=== PATIENT | female | born 1970 | race Caucasian/White ===

== ENCOUNTER 2019-07-18 08:52 | Observation (INO) | payer BC ==
[2019-07-18] MEDS ORDERED: Sodium Chloride 0.9% 10 ML Syringe FLUSH PRN (09:11)
[2019-07-18] MEDS ORDERED: Sodium Chloride 0.9% 1,000 ML IV ONE (09:12)
--- NOTE | 2019-07-18 09:24 | EDM.PDOC ---
<Homa Azar - Last Filed: 07/18/19 10:03> ED HPI GENERAL MEDICAL PROBLEM - General Chief Complaint: Fever Stated Complaint: COUGH,DIARRHEA,FEVER Time Seen by Provider: 07/18/19 09:19 Source of Information: Reports: Patient History Limitations: Reports: No Limitations - History of Present Illness INITIAL COMMENTS - FREE TEXT/NARRATIVE: Patient presents to the ED direct from clinic with concerns of cough, fever, and diarrhea. The patient states that her symptoms began on Tuesday. She experienced a recorded temp of 101 on Tuesday. The patient describes non- productive cough. She also has experienced occasional emesis and a sore throat. The patient also reports tingling in her extremities. The patient admits decreased appetite and decreased fluid intake. She has no known ill contacts. The patient denies abdominal pain, painful urination, hematuria, flank pain. 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 - Related Data Allergies Allergy/AdvReac Type Severity Reaction Status Date / Time acetaminophen [From Percocet] Allergy Itching Verified 07/18/19 09:10 lidocaine Allergy Burning Verified 07/18/19 09:10 oxycodone HCl [From Percocet] Allergy Itching Verified 07/18/19 09:10 tramadol Allergy Rash Verified 07/18/19 09:10 zolpidem Allergy Disorientat Verified 07/18/19 09:10 ion Home Meds: Home Meds Levothyroxine 25 mg PO DAILY 12/20/18 [History] Levothyroxine 150 mg PO DAILY 12/20/18 [History] Past Medical History HEENT History: Reports: Impaired Vision Other HEENT History: glasses Cardiovascular History: Reports: High Cholesterol Respiratory History: Reports: None Gastrointestinal History: Reports: Diverticulosis Genitourinary History: Reports: None 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: Musculoskeletal History: Reports: Arthritis, Back Pain, Chronic Neurological History: Reports: None Psychiatric History: Reports: Depression Endocrine/Metabolic History: Reports: Hypothyroidism Other Endocrine/Metabolic History: Hx of gestasional Dm Hematologic History: Reports: None Immunologic History: Reports: None Oncologic (Cancer) History: Reports: Thyroid Other Oncologic History: thyroidectomy Dermatologic History: Reports: None - Infectious Disease History Infectious Disease History: Reports: Chicken Pox - Past Surgical History Head Surgeries/Procedures: Reports: None HEENT Surgical History: Reports: None Cardiovascular Surgical History: Reports: None Respiratory Surgical History: Reports: None GI Surgical History: Reports: Appendectomy, Cholecystectomy, Colonoscopy Female Surgical History: Reports: Breast Biopsy, Hysterectomy, Salpingo- Oophorectomy Endocrine Surgical History: Reports: Thyroidectomy Neurological Surgical History: Reports: None, Lumbar Spine Musculoskeletal Surgical History: Reports: Arthroscopic Knee, Other (See Below) Other Musculoskeletal Surgeries/Procedures:: FOOT SURGERY X2. Back surgery for herniated disc. Knee surgery for torn meniscus Oncologic Surgical History: Reports: Other (See Below) Other Oncologic Surgeries/Procedures: Thyroid biopsy Social & Family History - Family History Family Medical History: Noncontributory - Caffeine Use Caffeine Use: Reports: None ED ROS GENERAL - Review of Systems Review Of Systems: See Below Constitutional: Reports: Fever, Decreased Appetite Respiratory: Reports: Wheezing, Cough GI/Abdominal: Reports: Diarrhea, Nausea, Vomiting. Denies: Abdominal Pain, Bloody Stool, Constipation, Hematemesis : Denies: Dysuria, Flank Pain, Hematuria, Pain Neurological: Reports: Numbness (extremities), Tingling (extremities) ED EXAM, GENERAL - Physical Exam Exam: See Below Exam Limited By: No Limitations General Appearance: Alert, Mild Distress Ears: Normal External Exam, Normal Canal, Normal TMs Nose: Normal Inspection, Normal Mucosa Throat/Mouth: Normal Inspection, Normal Oropharynx Head: Atraumatic, Normocephalic Respiratory/Chest: No Respiratory Distress, Lungs Clear, Normal Breath Sounds Cardiovascular: Normal Peripheral Pulses, Regular Rate, Rhythm, No Murmur GI/Abdominal: Soft, Non-Tender Back Exam: No: CVA Tenderness (L), CVA Tenderness (R) Neurological: Other (Positive trousseau's, chvosteks) Psychiatric: Anxious Skin Exam: Warm, Dry, Intact Lymphatic: No Adenopathy EKG INTERPRETATION EKG Date: 07/18/19 Time: 09:40 Rhythm: NSR Rate (Beats/Min): 69 [place]: Normal P-Wave: Present QRS: Normal ST-T: Normal QT: Normal Comparison: NA - No Prior EKG Course - Vital Signs Last Recorded V/S: Last Vital Signs Temp 99.1 F 07/18/19 09:03 Pulse 81 07/18/19 09:03 Resp 18 07/18/19 09:03 BP 136/99 H 07/18/19 09:03 Pulse Ox 99 07/18/19 09:03 - Orders/Labs/Meds Orders: Active Orders 24 hr Category Date Time Status EKG 12 Lead [EKG Documentation Completion] [RC] STAT Care 07/18/19 09:32 Active Peripheral IV Care [RC] . DIRECTED Care 07/18/19 09:11 Active Chest 2V [CR] Urgent Exams 07/18/19 09:22 Taken CULTURE BLOOD [BC] Stat Lab 07/18/19 09:13 Received Sodium Chloride 0.9% [Normal Saline] 1,000 ml Med 07/18/19 09:12 Active IV .BOLUS Sodium Chloride 0.9% [Saline Flush] Med 07/18/19 09:11 Active 10 ml FLUSH ASDIRECTED PRN Isolation [COMM] Routine Oth 07/18/19 09:09 Active Peripheral IV Insertion Adult [OM.PC] Routine Oth 07/18/19 09:11 Ordered Medication Orders Sodium Chloride (Normal Saline) 1,000 mls @ 999 mls/hr IV .BOLUS ONE Stop: 07/18/19 10:12 Last Admin: 07/18/19 09:28 Dose: 999 mls/hr Sodium Chloride (Saline Flush) 10 ml FLUSH ASDIRECTED PRN PRN Reason: Keep Vein Open Labs: Laboratory Tests 07/18/19 07/18/19 07/18/19 Range/Units 09:13 09:13 09:13 WBC 10.7 H (5.0-10.0) 10^3/uL RBC 4.52 (4.2-5.4) 10^6/uL Hgb 15.3 (12.0-16.0) g/dL Hct 43.7 (37.0-47.0) % MCV 96.7 (80-100) fL MCH 33.8 (27.0-34.0) pg MCHC 35.0 (33.0-35.0) g/dL Plt Count 196 (150-450) 10^3/uL Neut % (Auto) 88.5 H (42.2-75.2) % Lymph % (Auto) 5.0 L (20.5-50.1) % [place] % (Auto) 6.0 (2-8) % Eos % (Auto) 0.3 L (1.0-3.0) % Baso % (Auto) 0.2 (0.0-1.0) % Sodium 139 (136-145) mmol/L Potassium 3.9 (3.5-5.1) mmol/L Chloride 98 L (101-111) mmol/L Carbon Dioxide 29 (21-32) mmol/L Anion Gap 15.9 H (7-13) mEq/L BUN 5 L (7-18) mg/dL Creatinine 0.88 (0.55-1.02) mg/dL Est Cr Clr Drug Dosing 77.15 mL/min Estimated GFR (MDRD) > 60 BUN/Creatinine Ratio 5.7 (No establ ref range) Glucose 101 H (74-99) mg/dL Lactic Acid 1.1 (0.4-2.0) mmol/L Calcium 7.2 L (8.5-10.1) mg/dL Magnesium (1.8-2.5) mg/dL Total Bilirubin 0.6 (0.2-1.0) mg/dL AST 110 H (15-37) U/L ALT 51 (14-59) U/L Alkaline Phosphatase 128 H (46-116) U/L Total Protein 8.2 (6.4-8.2) g/dL Albumin 4.3 (3.4-5.0) g/dL Globulin 3.9 Albumin/Globulin Ratio 1.1 //20 Range/Units 09:13 WBC (5.0-10.0) 10^3/uL RBC (4.2-5.4) 10^6/uL Hgb (12.0-16.0) g/dL Hct (37.0-47.0) % MCV (80-100) fL MCH (27.0-34.0) pg MCHC (33.0-35.0) g/dL Plt Count (150-450) 10^3/uL Neut % (Auto) (42.2-75.2) % Lymph % (Auto) (20.5-50.1) % [place]borne % (Auto) (2-8) % Eos % (Auto) (1.0-3.0) % Baso % (Auto) (0.0-1.0) % Sodium (136-145) mmol/L Potassium (3.5-5.1) mmol/L Chloride (101-111) mmol/L Carbon Dioxide (21-32) mmol/L Anion Gap (7-13) mEq/L BUN (7-18) mg/dL Creatinine (0.55-1.02) mg/dL Est Cr Clr Drug Dosing mL/min Estimated GFR (MDRD) BUN/Creatinine Ratio (No establ ref range) Glucose (74-99) mg/dL Lactic Acid (0.4-2.0) mmol/L Calcium (8.5-10.1) mg/dL Magnesium 1.9 (1.8-2.5) mg/dL Total Bilirubin (0.2-1.0) mg/dL AST (15-37) U/L ALT (14-59) U/L Alkaline Phosphatase (46-116) U/L Total Protein (6.4-8.2) g/dL Albumin (3.4-5.0) g/dL Globulin Albumin/Globulin Ratio Meds: Medications Generic Name Dose Route Start Last Admin Trade Name Freq PRN Reason Stop Dose Admin Sodium Chloride 1,000 mls @ 999 mls/hr 07/18/19 09:12 07/18/19 09:28 Normal Saline IV 07/18/19 10:12 999 mls/hr .BOLUS ONE Administration Sodium Chloride 10 ml 07/18/19 09:11 Saline Flush FLUSH ASDIRECTED PRN Keep Vein Open Discontinued Medications Generic Name Dose Route Start Last Admin Trade Name Freq PRN Reason Stop Dose Admin Calcium Chloride 1 gm 07/18/19 09:49 Calcium Chloride 10% IVPUSH 07/18/19 09:50 ONETIME ONE - Radiology Interpretation Free Text/Narrative:: Chest xr unremarkable Departure - Departure Time of Disposition: 10:03 (admitted to Dr. Vallejo) Disposition: Refer to Observation Condition: Fair Clinical Impression: Influenza A, Hypocalcemia - Discharge Information *PRESCRIPTION DRUG MONITORING PROGRAM REVIEWED*: Not Applicable *COPY OF PRESCRIPTION DRUG MONITORING REPORT IN PATIENT NEDA: Not Applicable Forms: ED Department Discharge Sepsis Event Note - Evaluation Sepsis Screening Result: No Definite Risk - Focused Exam Vital Signs: Vital Signs Temp Pulse Resp BP Pulse Ox 07/18/19 09:03 99.1 F 81 18 136/99 H 99 Date Exam was Performed: 07/18/19 Time Exam was Performed: 10:03 - My Orders Last 24 Hours: My Active Orders 07/18/19 09:12 Sodium Chloride 0.9% [Normal Saline] 1,000 ml IV .BOLUS - Assessment/Plan Last 24 Hours: My Active Orders 07/18/19 09:12 Sodium Chloride 0.9% [Normal Saline] 1,000 ml IV .BOLUS <Samy Lopes - Last Filed: 07/18/19 10:04> Course - Re-Assessments/Exams Free Text/Narrative Re-Assessment/Exam: 07/18/19 10:04 I personally performed or re-performed the physical examination and medical decision making. I have verified all student documentation or findings, including history, physical exam and/or medical decision making. Sepsis Event Note - Focused Exam Date Exam was Performed: 07/18/19 Time Exam was Performed: 10:04
[2019-07-18 09:43] LABS: ANION GAP 15.9 mEq/L (7-13); CHLORIDE,CL 98 mmol/L (101-111); SODIUM,NA 139 mmol/L (136-145)
[2019-07-18] MEDS ORDERED: Calcium Chloride 10% 1 GM/10 ML Syringe IVPUSH ONE (09:49)
[2019-07-18] MEDS ORDERED: Acetaminophen/HYDROcodone 325-10 MG Tab PO PRN (10:39)
[2019-07-18] MEDS ORDERED: Ondansetron 4 MG Tab.DIS PO PRN (10:39)
[2019-07-18] MEDS ORDERED: Ondansetron 4 MG/2 ML SDV IVPUSH PRN (10:39)
[2019-07-18] MEDS: Codeine/Promethazine 10-6.25 MG/5 ML Syrup 5 ML UD Cup PO PRN ×3 (12:13→20:41)
[2019-07-18] MEDS: Sodium Chloride 0.9% 1,000 ML IV SCH ×2 (12:13→20:59)
[2019-07-18] MEDS: Acetaminophen 325 MG Tab PO PRN ×3 (12:13→20:39)
[2019-07-18] MEDS: Oseltamivir 75 MG Cap PO SCH ×2 (12:13→20:39)
[2019-07-18] MEDS: Calcium Carbonate/Vitamin D3 1250 MG-200 Unit Tab PO SCH ×3 (13:02→20:51)
--- NOTE | 2019-07-18 16:29 | HP ---
CHIEF COMPLAINT: Fever, cough, and diarrhea. HISTORY OF PRESENT ILLNESS: The patient is a 49-year-old lady who was admitted from the emergency room because the patient has been having some problems with nonproductive cough, fever, and diarrhea for the last 3 days. She had a temperature of 101 on Tuesday and also had some episodes of emesis and sore throat. Lately, she has been complaining of tingling in her extremities and also had decreased appetite and decreased fluid intake. The patient was seen in the emergency room and had some workup done and her calcium level was noted to be low and also she tested positive for influenza A. The patient was given calcium chloride 1 g IV in the emergency room and she was admitted for further observation. The patient denies though any abdominal pain, dysuria, chest pain, orthopnea, PND. PAST MEDICAL HISTORY: Remarkable for thyroidectomy and hypothyroidism, history of symptomatic hypocalcemia in the past, diverticulosis, arthritis of her back. PAST SURGICAL HISTORY: Appendectomy, cholecystectomy, hysterectomy, and salpingo-oophorectomy. FAMILY HISTORY: Noncontributory. SOCIAL HISTORY: The patient is . Drinks alcohol occasionally, but no illicit drug use. REVIEW OF SYSTEMS: As in HPI. The rest of the review of systems is negative. HOME MEDICATION: Synthroid. PHYSICAL EXAMINATION: General: The patient is alert and oriented, not in any acute distress. HEENT: Normocephalic. There is pink palpebral conjunctiva. Sclerae anicteric. Neck: No JVD. No lymphadenopathy. Heart: Regular rate and rhythm. Normal S1 and S2. No gallops. No rubs. Lungs: Clear. No crackles. No wheezing. Abdomen: Soft, nontender. Bowel sounds positive. Extremities: Negative for any significant pedal edema. No calf tenderness. Neurologic: Positive for Trousseau and Chvostek signs. LABORATORY WORKUP: CBC: WBC 10.7, hemoglobin is 15.3, hematocrit is 43.7, platelets 196. Sodium is 139, potassium is 3.9, chloride of 98, carbon dioxide 29, BUN is 5, creatinine is 0.88, glucose is 101, calcium is 7.2, AST is 110, ALT is 51, total protein is 8.2, magnesium is 1.9. Chest x-ray unremarkable. ADMITTING DIAGNOSES: 1. Fever, chills, cough, and diarrhea. Positive for influenza A. 2. Symptomatic hypocalcemia. TREATMENT PLAN: The patient is going to be admitted to observation in General Medicine floor. She was given IV calcium chloride in the emergency room and we will continue with oral calcium in the hospital. We will also start the patient on Tamiflu for the influenza A and we will continue with IV fluids and the rest of the management as necessary. [facility] /[id number]
[2019-07-19] MEDS: Codeine/Promethazine 10-6.25 MG/5 ML Syrup 5 ML UD Cup PO PRN ×5 (00:55→23:47)
[2019-07-19] MEDS: Sodium Chloride 0.9% 1,000 ML IV SCH (05:07)
[2019-07-19] MEDS ORDERED: Levothyroxine 150 MCG Tab PO SCH ×2 (06:00→09:00)
[2019-07-19] MEDS ORDERED: Levothyroxine 50 MCG Tab PO SCH (06:00)
[2019-07-19 06:57] LABS: ANION GAP 13.6 mEq/L (7-13); CHLORIDE,CL 104 mmol/L (98-107); SODIUM,NA 141 mmol/L (136-145)
[2019-07-19] MEDS ORDERED: Levothyroxine 25 MCG Tab PO SCH (09:00)
[2019-07-19] MEDS ORDERED: Nicotine 14 MG/24 Hr Patch TRDERM SCH (09:00)
[2019-07-19] MEDS ORDERED: Calcium Chloride 10% 1 GM/10 ML Syringe IVPUSH ONE (09:21)
[2019-07-19] MEDS: Oseltamivir 75 MG Cap PO SCH ×2 (09:41→20:33)
[2019-07-19] MEDS: Calcium Carbonate/Vitamin D3 1250 MG-200 Unit Tab PO SCH ×3 (09:42→20:34)
[2019-07-19] MEDS ORDERED: Calcium Gluconate 10% 1 GM/10 ML SDV IVPUSH ONE (11:30)
--- NOTE | 2019-07-19 11:42 | PN ---
DATE: 07/19/2019 SUBJECTIVE: The patient this morning is feeling slightly better. Still has some mild cough and still slightly weak, but she is feeling hungry, and so far, has not had any nausea, vomiting, or diarrhea. LABORATORY WORKUP: This morning, Chem-6 remarkable for calcium of 6.9, anion gap of 13.6, and BUN of 3. The rest of the Chem-6 panel is unremarkable. OBJECTIVE: Vital Signs: Blood pressure is 128/67, pulse of 62, respiration of 16, temperature of 98.9, saturation is 94%. HEENT: The patient is still looking flushed, but there are pink palpebral conjunctivae. Sclerae anicteric. Neck: No JVD. No lymphadenopathy. Heart: Regular rate and rhythm. Normal S1 and S2. No gallops. No rubs. Lungs: Coarse breath sounds, but no significant crackles. No wheezing. Abdomen: Soft, nontender. Bowel sounds positive. Extremities: Negative for any pedal edema. No calf tenderness. MEDICATIONS: Reviewed. PLAN: We will continue with her present management. I am going to give her calcium chloride IV x1 to increase her calcium level. We will recheck a CMP in a.m. [facility] /[id number]
[2019-07-19] MEDS ORDERED: Benzocaine/Cetylpyridinium/Menthol Lozenge MUCMEM PRN (17:30)
[2019-07-20 06:55] LABS: CHLORIDE,CL 101 mmol/L (98-107); SODIUM,NA 140 mmol/L (136-145)
[2019-07-20 08:15] VITALS: BP 126/80; PULSE 57
[2019-07-20] MEDS: Oseltamivir 75 MG Cap PO SCH (09:08)
[2019-07-20] MEDS: Calcium Carbonate/Vitamin D3 1250 MG-200 Unit Tab PO SCH (09:08)
--- NOTE | 2019-07-20 11:12 | PN ---
DATE: 07/20/2019 SUBJECTIVE: The patient is doing much better and still has some mild cough, but denies any more nausea, vomiting, or any other significant complaints. She mentioned that she is ready to go home. LABORATORY DATA: Lab workup this morning: Comp panel; calcium is 8, AST of 86. The rest of the panel unremarkable. OBJECTIVE: Vital Signs: Blood pressure is 130/71, pulse of 96, respirations 16, temperature of 99.2, saturation is 100% on room air. Heart: Regular rate and rhythm. Normal S1 and S2. No gallops. No rubs. Lungs: Equal bilaterally. No crackles. No wheezing. Abdomen: Soft, nontender. Bowel sounds positive. Extremities: Negative for any pedal edema. No calf tenderness. PLAN: We will discharge the patient home today. We will continue with her Tamiflu for the next 3 days, and we will also continue calcium with vitamin D supplementation. I will have her follow up with Luis Hutchins in 7 to 10 days for recheck. [facility] /[id number]
--- NOTE | 2019-07-21 00:18 | DISCH ---
FINAL DIAGNOSES: 1. Influenza A. 2. Chills, cough, and diarrhea secondary to influenza A. 3. Symptomatic hypocalcemia. HISTORY OF PRESENT ILLNESS: Please see H and P. PERTINENT LAB, X-RAY, AND OTHER TESTS: See H and P. HOSPITAL COURSE: The patient was admitted to observation. She was given IV fluids and the patient's calcium was repleted intravenously as well as orally. She did well. Her appetite slowly improved and nausea and vomiting have resolved. The rest of the hospital course was uncomplicated and she was subsequently discharged. CONDITION ON DISCHARGE: Improved. LABORATORY WORKUP: On discharge, comp panel, calcium level is 8, AST of 86, and albumin of 3.3. The rest of the panel unremarkable. FOLLOWUP: With Luis Hutchins in 7 to 10 days with recheck of basic metabolic panel. [facility] /[id number]
== END 2019-07-20 10:07 | disposition home or self-care (01) ==
LOC: DL.ED 08:52 → DL.MS 10:08
PROVIDERS: ADMIT Internal Medicine; ATTEND Internal Medicine
DX: J10.1 Influenza due to other identified influenza virus with other respiratory manifestations (principal); E83.51 Hypocalcemia; R20.2 Paresthesia of skin; E03.9 Hypothyroidism, unspecified; Z79.899 Other long term (current) drug therapy; Z88.4 Allergy status to anesthetic agent; Z88.5 Allergy status to narcotic agent; Z88.6 Allergy status to analgesic agent; Z88.8 Allergy status to other drugs, medicaments and biological substances
CPT/HCPCS: 36415; 71046; 80048; 80053; 83605; 83735; 84443; 85025; 87040; 87804; 93005; 96360; 99285; A9270; J0610; J2405; J7030; 96361; 96374; 96375; 96376; G0378

== ENCOUNTER 2023-05-02 14:28 | Emergency (ER) | payer BC ==
[2023-05-02] MEDS ORDERED: Sodium Chloride 0.9% 1,000 ML IV ONE ×3 (14:30→16:01)
[2023-05-02] MEDS ORDERED: Sodium Chloride 0.9% 10 ML Syringe FLUSH PRN (14:30)
[2023-05-02] MEDS ORDERED: Calcium Gluconate 10% 1 GM/10 ML SDV IVPUSH ONE (14:30)
[2023-05-02 14:38] LABS: BASOPHILS PERCENT AUTO 0.4 % (0.0-1.0); EOSINOPHILS PERCENT AUTO 0.1 % (1.0-3.0); HEMOGLOBIN 13.8 g/dL (12.0-16.0); LYMPHOCYTES PERCENT AUTO 20.7 % (20.5-50.1); MEAN CORPUSCULAR HEMOGLOBIN 33.3 pg (27.0-34.0); MEAN CORPUSCULAR HGB CONC 34.5 g/dL (33.0-35.0); MEAN CORPUSCULAR VOLUME 96.4 fL (80-100); NEUTROPHILS PERCENT AUTO 71.8 % (42.2-75.2); PLATELET COUNT,PLT 376 10^3/uL (150-450); RED BLOOD CELL COUNT 4.15 10^6/uL (4.2-5.4); WHITE BLOOD CELL COUNT,WBC 13.4 10^3/uL (5.0-10.0)
[2023-05-02] MEDS ORDERED: LORazepam 2 MG/ML SDV IVPUSH ONE (14:48)
[2023-05-02] MEDS ORDERED: Ondansetron 4 MG/2 ML SDV IV ONE (14:50)
[2023-05-02 15:02] LABS: A/G RATIO 1.3; ALANINE AMINOTRANSFERASE,ALT 26 U/L (14-59); ALBUMIN 4.2 g/dL (3.4-5.0); ALKALINE PHOSPHATASE 110 U/L (46-116); ANION GAP 21.7 mEq/L (7-13); ASPARTATE AMNIOTRANSFERASE,AST 30 U/L (15-37); BILIRUBIN TOTAL 0.5 mg/dL (0.2-1.0); BLOOD UREA NITROGEN,BUN 6 mg/dL (7-18); BUN/CREATININE RATIO 7.8 (No establ ref range); CALCIUM 9.7 mg/dL (8.5-10.1); CARBON DIOXIDE,CO2 22 mmol/L (21-32); CHLORIDE,CL 99 mmol/L (98-107); CREATININE 0.77 mg/dL (0.55-1.02); GLUCOSE RANDOM 149 mg/dL (70-99); MAGNESIUM 1.6 mg/dL (1.8-2.4); POTASSIUM,K 3.7 mmol/L (3.5-5.1); PROTEIN TOTAL,TP 7.5 g/dL (6.4-8.2); SODIUM,NA 139 mmol/L (136-145)
[2023-05-02 15:16] LABS: ESTIMATED GFR 92 mL/min (>=60); LACTIC ACID 4.5 mmol/L (0.4-2.0)
[2023-05-02] MEDS ORDERED: Magnesium Sulfate/Water 2 GM in Premix Bag 1 BAG IV ONE (15:21)
[2023-05-02 15:43] VITALS: BP 135/118; PULSE 127
[2023-05-02 15:43] LABS: C-REACTIVE PROTEIN 0.58 ng/dL (<=0.50)
[2023-05-02 15:46] LABS: AMPHETAMINES,URINE NEGATIVE (NEGATIVE); APPEARANCE,URINE CLEAR (CLEAR); BARBITURATES,URINE NEGATIVE (NEGATIVE); BENZODIAZEPINE,URINE NEGATIVE (NEGATIVE); BILIRUBIN,URINE NEGATIVE (NEGATIVE); COLOR,URINE YELLOW (YELLOW); GLUCOSE,URINE NEGATIVE (NEGATIVE); KETONES,URINE 40 (NEGATIVE); LEUKOCYTE ESTERASE,URINE NEGATIVE (NEGATIVE); MDMA (ECSTASY), URINE NEGATIVE (NEGATIVE); METHADONE,URINE NEGATIVE (NEGATIVE); METHAMPHETAMINES,URINE NEGATIVE (NEGATIVE); NITRITE,URINE NEGATIVE (NEGATIVE); OCCULT BLOOD,URINE NEGATIVE (NEGATIVE); OPIATES,URINE NEGATIVE (NEGATIVE); OXYCODONE,URINE NEGATIVE (NEGATIVE); PHENCYCLIDINE,URINE NEGATIVE (NEGATIVE); PROTEIN,URINE NEGATIVE (NEGATIVE); TCA,URINE POSITIVE (NEGATIVE); UROBILINOGEN,URINE 0.2 mg/dL (0.2-1.0)
[2023-05-02] MEDS ORDERED: Iopamidol 755 Mg/ML 100 ML Bottle IVPUSH ONE (16:50)
[2023-05-02] MEDS ORDERED: cefTRIAXone 2 GM Vial IVPUSH ONE (18:27)
[2023-05-02] MEDS ORDERED: Azithromycin 250 MG Tab PO ONE (18:28)
== END 2023-05-02 19:05 | disposition home or self-care (01) ==
LOC: DL.ED 14:28
DX: E83.42 Hypomagnesemia (principal); F41.0 Panic disorder [episodic paroxysmal anxiety]; J18.9 Pneumonia, unspecified organism; E03.9 Hypothyroidism, unspecified; Z88.4 Allergy status to anesthetic agent; Z88.5 Allergy status to narcotic agent; Z79.899 Other long term (current) drug therapy
CPT/HCPCS: 36415; 71275; 80053; 80305; 81003; 82550; 82947; 83605; 83735; 84443; 84484; 85025; 86140; 93005; 96361; 96365; 96375; 99285; A9270; J0612; J0696; J2060; J2405; J3475; J7030; Q9967; J3490

== ENCOUNTER 2025-01-05 19:20 | Emergency (ER) | payer BC ==
[2025-01-05 20:21] VITALS: BP 116/73; PULSE 98
== END 2025-01-05 20:40 | disposition home or self-care (01) ==
LOC: DL.ED 19:20
DX: Z13.89 Encounter for screening for other disorder (principal); E78.00 Pure hypercholesterolemia, unspecified; E03.9 Hypothyroidism, unspecified; Z90.710 Acquired absence of both cervix and uterus; Z79.899 Other long term (current) drug therapy; Z88.6 Allergy status to analgesic agent; Z88.5 Allergy status to narcotic agent; Z88.8 Allergy status to other drugs, medicaments and biological substances
CPT/HCPCS: 99282; 99284